=== PATIENT | female | born 1965 | race African-American/Black ===

== ENCOUNTER 2021-12-12 16:03 | Inpatient (IN) | payer MEDICARE, MEDICAID, SELFPAY ==
[2021-12-12 16:13] VITALS: BMI 35.4
[2021-12-12 16:55] LABS: Glucose Point of Care 157 mg/dL (70-110)
[2021-12-12 18:17] VITALS: BP 136/81; PULSE 76; RESP 17; TEMP 36.7; O2SAT 99
[2021-12-12] MEDS: OLANZapine 5 mg ODT PO (18:33)
[2021-12-12] MEDS: quetiapine 25 mg Tablet 50 MG PO (20:19)
[2021-12-12] MEDS: acetaminophen 325 mg Tablet 650 MG PO (20:19)
[2021-12-12] MEDS: ARIPiprazole 10 mg Tablet 20 MG PO (20:19)
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
[2021-12-12] MEDS: hyDROXYzine 25 mg Capsule 50 MG PO (20:45)
--- NOTE | 2021-12-12 21:00 | PC.NURSE ---
Patient came up to the window tearful asking for a bible because she knows she will not make it out of here alive. Bible was given to her and she was reassured she was safe. She was given a bible and she went back to her room. We let her know we would continue to check on her. Charge nurse spoke with her also.
[2021-12-12 21:10] VITALS: BP 142/91; PULSE 119; RESP 18; TEMP 36.7; O2SAT 100
[2021-12-13 06:00] VITALS: BP 111/70; PULSE 88; RESP 19; TEMP 36.7; O2SAT 99
[2021-12-13 06:25] LABS: Glucose Point of Care 214 mg/dL (70-110)
[2021-12-13] MEDS: citalopram 20 mg Tablet PO ×2 (07:59→17:57)
[2021-12-13] MEDS: acetaminophen 325 mg Tablet 650 MG PO ×3 (07:59→19:36)
[2021-12-13] MEDS: CLONazepam 1 mg Tablet PO (07:59)
[2021-12-13] MEDS: atenolol 50 mg Tablet 25 MG PO (08:00)
[2021-12-13] MEDS: levothyroxine 150 mcg Tablet PO (08:00)
[2021-12-13] MEDS: atorvastatin 40 mg Tablet PO (08:01)
[2021-12-13] MEDS: polyethylene glycol 3350 Pkt 17 gm PO (09:02)
[2021-12-13] MEDS: hyDROXYzine 25 mg Capsule 50 MG PO ×3 (09:02→20:55)
[2021-12-13] MEDS: insulin glargine 100 units/1 mL 10 UNIT SUBCUT (09:03)
--- NOTE | 2021-12-13 09:10 | PC.NURSE ---
Patient with c/o racing thoughts. Given hydroxizine 50 mg po for this.
[2021-12-13 11:21] LABS: Glucose Point of Care 218 mg/dL (70-110)
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
[2021-12-13 14:00] VITALS: BP 120/72; PULSE 88; RESP 18; TEMP 36.7; O2SAT 98
--- NOTE | 2021-12-13 15:22 | PC.NURSE ---
patient with c/o racing thoughts and headache rated 9. Given hydroxizine 50 mg po and Tylenol 650 mg po given for this.
[2021-12-13 16:59] LABS: Glucose Point of Care 282 mg/dL (70-110)
[2021-12-13] MEDS: metformin 500 mg Tablet PO (17:57)
[2021-12-13] MEDS: paliperidone ER 6 mg Tablet PO (17:57)
--- NOTE | 2021-12-13 19:36 | PC.NURSE ---
Patient with c/o headache rated 8-9 right posterior head. Tylenol 650 mg po given for this.
[2021-12-13] MEDS: quetiapine 25 mg Tablet 50 MG PO (20:08)
--- NOTE | 2021-12-13 21:48 | PC.NURSE ---
Patient requested medication to help her sleep and for her anxiety. She wanted to take visteril as that helped her last night. Visteril was given.
[2021-12-13 22:00] VITALS: BP 131/88; PULSE 96; RESP 16; TEMP 36.5; O2SAT 100
[2021-12-14 06:00] VITALS: BP 121/83; PULSE 92; RESP 19; TEMP 36.5; O2SAT 97
[2021-12-14 07:05] LABS: Glucose Point of Care 210 mg/dL (70-110)
[2021-12-14] MEDS: insulin lispro 100 unit/1 mL SUBCUT ×4 (08:18→20:45)
[2021-12-14] MEDS: atenolol 50 mg Tablet 25 MG PO (08:19)
[2021-12-14] MEDS: metformin 500 mg Tablet PO ×2 (08:19→17:31)
[2021-12-14] MEDS: paliperidone ER 6 mg Tablet PO (08:19)
[2021-12-14] MEDS: atorvastatin 40 mg Tablet PO (08:19)
[2021-12-14] MEDS: citalopram 20 mg Tablet PO ×2 (08:19→17:31)
[2021-12-14] MEDS: CLONazepam 1 mg Tablet PO (08:19)
[2021-12-14] MEDS: levothyroxine 150 mcg Tablet PO (08:19)
--- NOTE | 2021-12-14 10:06 | PC.NURSE ---
CALM AND COOPERATIVE. REQUESTED TO STOP SEROQUEL AT BEDTIME AND TO START VITAMIN D3 50,[address] NOTIFIED AND VERIFIED CHANGES. ORDERS PLACED. REPORTS THAT SEROQUEL MADE HER FEEL TOO LETHARGIC THIS MORNING. UP AND APPROPRIATE AT THIS TIME.
[2021-12-14 11:51] LABS: Glucose Point of Care 178 mg/dL (70-110)
[2021-12-14] MEDS: hyDROXYzine 25 mg Capsule 50 MG PO (12:25)
[2021-12-14] MEDS: ergocalciferol (vitamin D2) 50,000 Unit Capsule 50000 UNIT PO (13:57)
[2021-12-14 14:00] VITALS: BP 118/82; PULSE 94; RESP 17; TEMP 36.7; O2SAT 99
[2021-12-14 16:38] LABS: Glucose Point of Care 185 mg/dL (70-110)
--- NOTE | 2021-12-14 17:44 | P.NPUPN_ITS ---
Subjective NPU Subjective: Interval history: Patient presents today reporting that she is feeling better and less stomach. She reports that she is not noticing anything from the Invega that is negative. So overall she is happy. She brought up our discussion about the Celexa and changing that to Effexor XR. We discussed the risk benefits and alternatives of starting Effexor XR 37.5 mg p.o. daily in the morning for hydration and decreasing the Celexa to 20 mg every morning for 3 days and then drop that to 10 mg p.o. every morning for 3 days and then discontinue if he understood and agreed to proceed as is documented in this note. Mental Status Exam MSE Comments: This is an overweight, versus obese, female, with hospital scrubs on with adequate, grooming, and eye contact. No abnormal movements except for less psychomotor retardation and almost stiffness and robotic movements. Cooperative with exam in no acute distress. Speech was decreased rate and volume with slightly improved prosody. Mood described as a little better; affect less flat. Thought process, organized. Thought content: patient denied current suicidal or homicidal ideation, there was less paranoia reported and she did appear less guarded. She denied any auditory or visual hallucinations. Attention and concentration were mostly intact, and memory appeared reliable, but none were formally tested. She is alert and oriented times three. Insight and judgment are fair, impulse control limited. Vitals/I&O/Wt Last Vital Signs Temp 98.4 F 12/14/21 21:55 Pulse 93 12/14/21 21:55 Resp 16 12/14/21 21:55 BP 123/90 12/14/21 21:55 Pulse Ox 100 12/14/21 21:55 A&P Assessment and plan (1) Schizophrenia: Status: Acute Plan This is a 55-year-old, almost 56-year-old, female, with long history of mental health and eventually psychotic illness with a lot of psychosocial stressors and feeling like there are not solutions to her feeling better and feeling more like a ?normal person so that the regular normal part of me can come out?, such that she had a recent suicide attempt leading to this hospitalization. RECOMMENDATION AND PLAN: 1. Continue current medication. Discontinued Abilify and started Invega 6 mg po q daily and will consider decrease Celexa as stated above and start Effexor XR 37 Biograph p.o. every morning in the morning. 2. Encourage individual, group, and milieu therapy. 3. Continue q-15 minute checks for safety. Involuntary Hold Information 96 Hour Hold: 96 Hour Involuntary Admission: No Attestations NPU Medical Necessity Statement*: Inpatient hospitalization is medically necessary and the clinically appropriate intervention, at this time. We will monitor medications and make changes as indicated. Likely length of stay is 2-4 days. Coding Level of Care Code Acute Certified Surgical Assistant for Hao Serrato Diagnoses Schizophrenia F20.9
[2021-12-14 20:41] LABS: Glucose Point of Care 213 mg/dL (70-110)
[2021-12-14] MEDS: insulin glargine 100 units/1 mL 10 UNIT SUBCUT (20:46)
[2021-12-14 21:55] VITALS: BP 123/90; PULSE 93; RESP 16; TEMP 36.9; O2SAT 100
[2021-12-15] MEDS: hyDROXYzine 25 mg Capsule 50 MG PO ×3 (01:18→21:17)
[2021-12-15 06:00] VITALS: BP 111/80; PULSE 93; RESP 18; TEMP 36.6; O2SAT 97
[2021-12-15 06:59] LABS: Glucose Point of Care 184 mg/dL (70-110)
[2021-12-15] MEDS: insulin lispro 100 unit/1 mL SUBCUT ×4 (08:13→21:04)
[2021-12-15] MEDS: atorvastatin 40 mg Tablet PO (08:20)
[2021-12-15] MEDS: paliperidone ER 6 mg Tablet PO (08:20)
[2021-12-15] MEDS: venlafaxine ER (24HR) 37.5 mg Capsule PO (08:20)
[2021-12-15] MEDS: atenolol 50 mg Tablet 25 MG PO (08:20)
[2021-12-15] MEDS: CLONazepam 1 mg Tablet PO (08:20)
[2021-12-15] MEDS: levothyroxine 150 mcg Tablet PO (08:22)
[2021-12-15] MEDS: citalopram 20 mg Tablet PO (08:24)
[2021-12-15] MEDS: polyethylene glycol 3350 Pkt 17 gm PO (08:43)
--- NOTE | 2021-12-15 09:20 | PC.NURSE ---
PATIENT HAS BEEN UP, CALM AND COOPERATIVE. DENIES ANY AVH OR SI/HI. AFFECT IS BLAND. THOUGHT PROCESS IS CLEAR, PATIENT A&OX4. ENDORSED MILD ANXIETY AND REQUESTED VISTARIL WITH AM MEDS. VISTARIL HAS BEEN EFFECTIVE.
--- NOTE | 2021-12-15 11:26 | DCPLANNER ---
IMM completed with pt and pt given a copy of rights.
[2021-12-15 11:34] LABS: Glucose Point of Care 169 mg/dL (70-110)
[2021-12-15 14:00] VITALS: BP 107/74; PULSE 76; RESP 17; TEMP 36.7; O2SAT 98
[2021-12-15] MEDS: OLANZapine 5 mg ODT PO (15:17)
[2021-12-15 16:48] LABS: Glucose Point of Care 261 mg/dL (70-110)
--- NOTE | 2021-12-15 18:00 | P.NPUPN_ITS ---
Subjective NPU Subjective: Interval history: Patient presents today reporting that she is doing much better than when she got here. She reports that the Invega seems to work much better for her than the Abilify did. She reports that she is responding well she believes to be decrease in Celexa and initiation of Effexor XR. She reports that when she spoke with her family they agreed that she is improving and can hear it in her conversation. We discussed that he was taking 1 day at a time and discussed tomorrow how she appears to be doing with a likely plan of discharge by Saturday if she continues this improvement. Mental Status Exam 2 MSE Comments: This is an overweight, versus obese, female, with hospital scrubs on with adequate, grooming, and eye contact. No abnormal movements except for less psychomotor retardation and less stiffness and robotic movements. Cooperative with exam in no acute distress. Speech was decreased rate and volume with slightly improved prosody. Mood described as a little better; affect less flat. Thought process, organized. Thought content: patient denied current suicidal or homicidal ideation, there was less paranoia reported and she did appear less guarded. She denied any auditory or visual hallucinations. Attention and concentration were mostly intact, and memory appeared reliable, but none were formally tested. She is alert and oriented times three. Insight and judgment are fair, impulse control limited. Vitals/I&O/Wt Last Vital Signs Temp 97.8 F 12/15/21 20:56 Pulse 78 12/15/21 20:56 Resp 18 12/15/21 20:56 BP 129/86 12/15/21 20:56 Pulse Ox 100 12/15/21 20:56 A&P Assessment and plan (1) Schizophrenia: Status: Acute Plan This is a 55-year-old, almost 56-year-old, female, with long history of mental health and eventually psychotic illness, schizophrenia versus seasonal affective disorder, with a lot of psychosocial stressors and feeling like there are not solutions to her feeling better and feeling more like a ?normal person so that the regular normal part of me can come out?, such that she had a recent suicide attempt leading to this hospitalization. RECOMMENDATION AND PLAN: 1. Continue current medication. Discontinued Abilify and started Invega 6 mg po q daily and will consider decrease Celexa to 20 mg every morning for 3 days and then stop and started Effexor XR 37.5 mg p.o. every morning. 2. Encourage individual, group, and milieu therapy. 3. Continue q-15 minute checks for safety. Involuntary Hold Information 96 Hour Hold: 96 Hour Involuntary Admission: No Attestations NPU Medical Necessity Statement*: Inpatient hospitalization is medically necessary and the clinically appropriate intervention, at this time. We will monitor medications and make changes as indicated. Likely length of stay is 1-3 days. Coding Level of Care Code Acute Supervisor Respiratory for Hao Serrato Diagnoses Schizophrenia F20.9
[2021-12-15 20:55] LABS: Glucose Point of Care 280 mg/dL (70-110)
[2021-12-15 20:56] VITALS: BP 129/86; PULSE 78; RESP 18; TEMP 36.6; O2SAT 100
[2021-12-15] MEDS: insulin glargine 100 units/1 mL 10 UNIT SUBCUT (21:16)
[2021-12-16 06:00] VITALS: BP 112/78; PULSE 94; RESP 18; TEMP 36.6; O2SAT 97
[2021-12-16 06:51] LABS: Glucose Point of Care 237 mg/dL (70-110)
[2021-12-16] MEDS: paliperidone ER 6 mg Tablet PO (08:43)
[2021-12-16] MEDS: CLONazepam 1 mg Tablet PO (08:43)
[2021-12-16] MEDS: citalopram 20 mg Tablet PO (08:43)
[2021-12-16] MEDS: atorvastatin 40 mg Tablet PO (08:43)
[2021-12-16] MEDS: venlafaxine ER (24HR) 37.5 mg Capsule PO (08:43)
[2021-12-16] MEDS: levothyroxine 150 mcg Tablet PO (08:43)
[2021-12-16] MEDS: atenolol 50 mg Tablet 25 MG PO (08:44)
[2021-12-16] MEDS: insulin lispro 100 unit/1 mL SUBCUT ×4 (08:45→20:41)
--- NOTE | 2021-12-16 09:10 | PC.NURSE ---
AM assessment Patient is up to nurses station awaiting meds with assessment. She is alert and oriented in all aspects. She denies SI, HI, or hallucinations. Hr regular in rhythm. PPP x2 with no edema noted. Lungs clear with breathing even and nonlabored. Bowel sounds active in all quads. Denies pain with urination. Denies all other pain. Skin is warm and dry.
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
[2021-12-16] MEDS: hyDROXYzine 25 mg Capsule 50 MG PO ×2 (11:22→20:34)
[2021-12-16 11:33] LABS: Glucose Point of Care 257 mg/dL (70-110)
--- NOTE | 2021-12-16 11:44 | W.PM.NPUPNS ---
Subjective NPU Subjective: Interval history: Patient presents today with a mild setback. She is feeling somewhat anxious about her discharge going home being close. We discussed that she is doing well with the adjustment from Abilify to Invega. And that we are just starting this transfer from Celexa to Effexor XR. That she should understand that we are not rushing this trying to make sure that she feels safe and feels heard from the standpoint of when discharge is appropriate. She denies any side effects or new difficulties. She reports she is communicating with her family back home about her progress. She is eating better and sleeping fine. Mental Status Exam MSE Comments: This is an overweight, versus obese, female, with hospital scrubs on with adequate, grooming, and eye contact. No abnormal movements except for less psychomotor retardation and continued stiffness and robotic movements. Cooperative with exam in mild distress. Speech was decreased rate and volume with slightly improved prosody. Mood described as a little better; affect less flat. Thought process, organized. Thought content: patient denied current suicidal or homicidal ideation, there was less paranoia reported and she did appear less guarded. She denied any auditory or visual hallucinations. Attention and concentration were mostly intact, and memory appeared reliable, but none were formally tested. She is alert and oriented times three. Insight and judgment are fair, impulse control limited. Vitals/I&O/Wt Last Vital Signs Temp 97.9 F 12/16/21 06:00 Pulse 94 12/16/21 06:00 Resp 18 12/16/21 06:00 BP 112/78 12/16/21 06:00 Pulse Ox 97 12/16/21 06:00 Weight last 48 hrs Weight 81.919 kg A&P Assessment and plan (1) Schizophrenia: Status: Acute Plan This is a 55-year-old, almost 56-year-old, female, with long history of mental health and eventually psychotic illness, schizophrenia versus seasonal affective disorder, with a lot of psychosocial stressors and feeling like there are not solutions to her feeling better and feeling more like a ?normal person so that the regular normal part of me can come out?, such that she had a recent suicide attempt leading to this hospitalization. RECOMMENDATION AND PLAN: 1. Continue current medication. Discontinued Abilify and started Invega 6 mg po q daily and decreased Celexa to 20 mg every morning for 3 days and then stop and started Effexor XR 37.5 mg p.o. every morning likely increase Effexor at discharge to 75 mg 2. Encourage individual, group, and milieu therapy. 3. Continue q-15 minute checks for safety. Involuntary Hold Information 96 Hour Hold: 96 Hour Involuntary Admission: No Attestations NPU Medical Necessity Statement*: Inpatient hospitalization is medically necessary and the clinically appropriate intervention, at this time. We will monitor medications and make changes as indicated. Likely length of stay is 1-3 days. Coding Level of Care Code Acute Java Software Engineer for Hao Serrato Diagnoses Schizophrenia F20.9
[2021-12-16 14:00] VITALS: BP 105/71; PULSE 74; RESP 17; TEMP 36.8; O2SAT 95
[2021-12-16 16:48] LABS: Glucose Point of Care 270 mg/dL (70-110)
[2021-12-16 20:25] VITALS: BP 121/82; PULSE 85; RESP 17; TEMP 37.1; O2SAT 99
[2021-12-16 20:32] LABS: Glucose Point of Care 271 mg/dL (70-110)
[2021-12-16] MEDS: insulin glargine 100 units/1 mL 10 UNIT SUBCUT (20:40)
--- NOTE | 2021-12-16 22:48 | PC.NURSE ---
2029 c/o anxiety vistaril 50 mg given po. 2129- Effective resting in bed with eyes closed.
[2021-12-17] MEDS: acetaminophen 325 mg Tablet 650 MG PO (03:07)
[2021-12-17] MEDS: hyDROXYzine 25 mg Capsule 50 MG PO (03:52)
[2021-12-17 05:27] VITALS: BP 121/82; PULSE 85; RESP 17; TEMP 37.1; O2SAT 99
[2021-12-17 06:41] VITALS: BP 115/80; PULSE 80; RESP 18; TEMP 36.4; O2SAT 98
[2021-12-17 06:57] LABS: Glucose Point of Care 238 mg/dL (70-110)
[2021-12-17] MEDS: levothyroxine 150 mcg Tablet PO (08:27)
[2021-12-17] MEDS: atorvastatin 40 mg Tablet PO (08:27)
[2021-12-17] MEDS: citalopram 20 mg Tablet PO (08:28)
[2021-12-17] MEDS: CLONazepam 1 mg Tablet PO (08:28)
[2021-12-17] MEDS: insulin lispro 100 unit/1 mL SUBCUT ×4 (08:29→20:22)
[2021-12-17] MEDS: venlafaxine ER (24HR) 37.5 mg Capsule PO (08:29)
[2021-12-17] MEDS: paliperidone ER 6 mg Tablet PO (08:29)
[2021-12-17] MEDS: atenolol 50 mg Tablet 25 MG PO (08:29)
--- NOTE | 2021-12-17 08:33 | PC.NURSE ---
refused scheduled Miralax pkt this morning
--- NOTE | 2021-12-17 10:58 | W.PM.NPUPNS ---
Subjective NPU Subjective: Interval history: Patient presents today reporting that she is starting to feel more optimistic about the prospect of going home and being safe and functional in the setting. We discussed the process of her getting her medications and agreed that it would be best to make sure she had her first months worth of medication without worries of prior authorizations or things of that nature. We discussed the plan to work with the treatment team on resources to get her back to [facility] tomorrow. She reports that she is eating okay and sleeping better and liking her current medications. We discussed that tomorrow we would go to the reduction of 10 mg of Celexa 3 days before discontinuing it and increasing to 75 mg of the Effexor XR. Mental Status Exam MSE Comments: This is an overweight, versus obese, female, with hospital scrubs on with adequate, grooming, and eye contact. No abnormal movements except for less psychomotor retardation and decreasing stiffness and robotic movements. Cooperative with exam in no acute distress. Speech was decreased rate and volume with slightly improved prosody. Mood described as better; affect less flat. Thought process, organized. Thought content: patient denied current suicidal or homicidal ideation, there was less paranoia reported and she did appear less guarded. She denied any auditory or visual hallucinations. Attention and concentration were mostly intact, and memory appeared reliable, but none were formally tested. She is alert and oriented times three. Insight and judgment are fair, impulse control limited. Vitals/I&O/Wt Last Vital Signs Temp 97.5 F L 12/17/21 06:41 Pulse 80 12/17/21 06:41 Resp 18 12/17/21 06:41 BP 115/80 12/17/21 06:41 Pulse Ox 98 12/17/21 06:41 Weight last 48 hrs Weight 81.919 kg A&P Assessment and plan (1) Schizophrenia: Status: Acute Plan This is a 55-year-old, almost 56-year-old, female, with long history of mental health and eventually psychotic illness, schizophrenia versus seasonal affective disorder, with a lot of psychosocial stressors and feeling like there are not solutions to her feeling better and feeling more like a ?normal person so that the regular normal part of me can come out?, such that she had a recent suicide attempt leading to this hospitalization. RECOMMENDATION AND PLAN: 1. Continue current medication. Discontinued Abilify and started Invega 6 mg po q daily and decreased Celexa to 20 mg every morning for 3 days and then decrease to 10 mg p.o. every morning for 3 days and then stop and started Effexor XR 37.5 mg p.o. every morning will increase Effexor Exar to 75 mg p.o. every morning in the morning. 2. Encourage individual, group, and milieu therapy. 3. Continue q-15 minute checks for safety. Involuntary Hold Information 96 Hour Hold: 96 Hour Involuntary Admission: No Attestations NPU Medical Necessity Statement*: Inpatient hospitalization is medically necessary and the clinically appropriate intervention, at this time. We will monitor medications and make changes as indicated. Likely length of stay is 1-2 days. Coding Level of Care Code Acute Supply Chain Logistics Manager for [facility] [facility] Diagnoses Schizophrenia F20.9
[2021-12-17 11:26] LABS: Glucose Point of Care 213 mg/dL (70-110)
[2021-12-17 14:00] VITALS: BP 104/73; PULSE 79; RESP 17; TEMP 36.8; O2SAT 100
[2021-12-17 16:39] LABS: Glucose Point of Care 234 mg/dL (70-110)
[2021-12-17 20:00] LABS: Glucose Point of Care 207 mg/dL (70-110)
[2021-12-17] MEDS: insulin glargine 100 units/1 mL 10 UNIT SUBCUT (20:20)
[2021-12-17 22:00] VITALS: BP 116/77; PULSE 72; RESP 18; TEMP 36.5; O2SAT 100
[2021-12-18 06:00] VITALS: BP 115/87; PULSE 119; RESP 18; TEMP 36.3; O2SAT 97
--- NOTE | 2021-12-18 06:12 | PC.NURSE ---
Patient came to the nurses station this morning and she was able to remember her PCP's name. She see's Dr. Akilah Melissa MD at [facility] in [place].
[2021-12-18 06:41] LABS: Glucose Point of Care 248 mg/dL (70-110)
[2021-12-18] MEDS: insulin lispro 100 unit/1 mL SUBCUT ×2 (08:24→11:57)
[2021-12-18] MEDS: paliperidone ER 6 mg Tablet PO (08:26)
[2021-12-18] MEDS: levothyroxine 150 mcg Tablet PO (08:26)
[2021-12-18] MEDS: venlafaxine ER (24HR) 75 mg Capsule PO (08:26)
[2021-12-18] MEDS: polyethylene glycol 3350 Pkt 17 gm PO (08:26)
[2021-12-18] MEDS: atenolol 50 mg Tablet 25 MG PO (08:26)
[2021-12-18] MEDS: atorvastatin 40 mg Tablet PO (08:26)
[2021-12-18] MEDS: citalopram 20 mg Tablet 10 MG PO (08:27)
--- NOTE | 2021-12-18 08:39 | PC.NURSE ---
Am assessment patient is up on phone with assessment. She is alert and oriented in all aspects. She denies SI, HI, or hallucinations. Hr regular with ppp x 2, no edema noted. Lungs clear with breathing even and nonlabored. Bowel sounds active in all quads. Denies pain with urination. Skin is warm and dry.
[2021-12-18 11:35] LABS: Glucose Point of Care 274 mg/dL (70-110)
--- NOTE | 2021-12-18 12:45 | DCPLANNER ---
IMM was completed with pt on 12/18/21 @ 2599. Pt was given a copy of rights and stated she understands Medicare rights.
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
[2021-12-18 14:14] VITALS: BP 115/87; PULSE 119; RESP 18; TEMP 36.3; O2SAT 97
== END 2021-12-18 15:36 | disposition home or self-care (01) | DRG 885 ==
PROVIDERS: Admitting Provider Psychiatry & Neurology Psychiatry; Visit Provider Psychiatry & Neurology Psychiatry
DX: F20.9 Schizophrenia, unspecified (principal); Z91.51 Personal history of suicidal behavior; E66.3 Overweight; Z68.33 Body mass index [BMI] 33.0-33.9, adult; Z62.810 Personal history of physical and sexual abuse in childhood; Z81.8 Family history of other mental and behavioral disorders; Z81.4 Family history of other substance abuse and dependence; Z79.4 Long term (current) use of insulin
CPT/HCPCS: 36416; 82962; 96372; 97150; 97165; J1815 ×2